=== PATIENT | male | born 2000 | race Caucasian/White ===

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

== ENCOUNTER 2019-01-18 10:11 | Emergency (ER) | payer BC ==
[2019-01-18] MEDS: IBUPROFEN 600 MG TAB PO (10:43)
== END 2019-01-18 12:03 | disposition home or self-care (01) ==
LOC: FTE 10:11
DX: S69.92XA Unspecified injury of left wrist, hand and finger(s), initial encounter (principal); J45.909 Unspecified asthma, uncomplicated; W23.1XXA Caught, crushed, jammed, or pinched between stationary objects, initial encounter; Y92.9 Unspecified place or not applicable
CPT/HCPCS: 29125; 73130-LT; 99283-25